=== PATIENT | female | born 1990 | race Caucasian/White ===

== ENCOUNTER 2021-03-31 09:20 | Emergency (ER) | payer OTHER ==
[~2021-03-31] VITALS: Ht 162.6 cm; Wt 68.0 kg
[2021-03-31] MEDS ORDERED: DICLOFENAC POTA50 MG PO (12:06)
[2021-03-31] MEDS ORDERED: INTESTINEX680 M1 PO (12:06)
[2021-03-31] MEDS ORDERED: AMOX-CLAV 875-1 EAC1 PO (12:06)
== END 2021-03-31 12:37 ==
LOC: ER 09:20
DX: H66.93 Otitis media, unspecified, bilateral (principal)